=== PATIENT | male | born 1990 | race African-American/Black ===

== ENCOUNTER 2020-02-22 00:54 | Emergency (ER) | payer BC ==
[~2020-02-22] VITALS: Ht 180.3 cm; Wt 81.6 kg
--- NOTE | 2020-02-22 01:25 | NUR ---
ED Nurse Note: PT FROM HOME C/O NECK PAIN. PT STATES HAVING MASSAGE THERAPY ON TUESDAY AND MADE THE PAIN WORSE. PT STATES SEEING PMD TODAY WITH MED PRX BUT NO RELIEF. VSS, AMBULATORY, NAD.
[2020-02-22 01:36] VITALS: BP 134/73
[2020-02-22] MEDS ORDERED: METAXALONE400 MG PO (01:37)
[2020-02-22] MEDS ORDERED: Morphine Sulfate 4mg/ml Inj (IV USE ONLY) IVP ONE (01:45)
[2020-02-22] MEDS ORDERED: Ketorolac 30mg Inj IV ONE (01:45)
--- NOTE | 2020-02-22 01:47 | Emergency Room Report ---
History of Present Illness General Chief Complaint: Neck Pain Source: Patient Present Illness HPI Patient presents with complaints of lower occipital head pain and upper neck pain Patient reports initially symptoms started about 2 months ago that have slowly started to worsen Earlier this week patient had a massage by a therapist And feels that the area has now exacerbated more patient complains of pain at the base of the occipital region as well And bilateral temporal area with pounding sensation denies any visual changes denies any vomiting Patient also has discomfort to the right side of the throat area He has pain with swallowing pain in the right trapezius region Denies any chest pain denies any vomiting or diarrhea denies any recent travel denies any other trauma patient saw his primary physician today Has been taking Motrin and muscle relaxer with almost no improvement Allergies: Coded Allergies: CEPHALOSPORINS (Verified Allergy, Unknown, 02/22/20) ERYTHROMYCIN BASE (Verified Allergy, Unknown, 02/22/20) PENICILLIN G (Verified Allergy, Unknown, 02/22/20) COVID-19 Screening Contact w/high risk pt: No Recent Travel to affected area: No Experienced COVID-19 symptoms?: No Patient History Past Medical History: see triage record Reviewed Nursing Documentation: PMH: Agreed; PSxH: Agreed Review of Systems All Other Systems: negative except mentioned in HPI Physical Exam Vital Signs Date Time Temp Pulse Resp B/P (MAP) Pulse Ox O2 Delivery O2 Flow Rate FiO2 02/22/20 01:22 98.4 66 18 140/74 (96) 98 Room Air Sp02 EP Interpretation: reviewed, normal General Appearance: no apparent distress Head: normocephalic, atraumatic Eyes: bilateral eye PERRL, bilateral eye EOMI ENT: hearing grossly normal, EOM grossly intact, normal pharynx Neck: other - Patient is sitting straight has discomfort with trying to rotate the head from side to side has discomfort on palpation of the occipital region, no midline cervical spine step-offs, no obvious palpable supraclavicular masses Respiratory: lungs clear Cardiovascular #1: regular rate, rhythm Gastrointestinal: non tender, soft Musculoskeletal: normal inspection Neurologic: alert, oriented Skin: no rash Lymphatic: no adenopathy Medical Decision Making Diagnostic Impression: Primary Impression: Neck pain ER Course Multiple differentials including but not limited to meningitis, other infectious process musculoskeletal pathology,, neurological/neurosurgical differentials entertained I felt patient would benefit from baseline blood work for further evaluation of these differentials and imaging patient also ordered for IV medication Given the location of the discomfort and the duration, mediastinal mass and other emergent differentials also entertained At this time patient refuses any IV establishment Refuses any IV medication Patient however is agreeable to imaging this was performed patient was also given a soft collar C-spine For some symptomatic improvement After negative results I discussed further possible intervention and patient was agreeable to Medrol Dosepak patient understands that with refusing medical intervention and testing this can Interfere with missed diagnoses and other differentials Patient is afebrile At this time somewhat improved and reports that he has close outpatient follow- up CT/MRI/US Diagnostic Results CT/MRI/US Diagnostic Results : Impression CT head: No acute disease CT C-spine: No acute disease CT chest: No acute disease Last Vital Signs Date Time Temp Pulse Resp B/P (MAP) Pulse Ox O2 Delivery O2 Flow Rate FiO2 02/22/20 01:36 98.3 67 18 134/73 98 Room Air Status: improved Disposition: HOME, SELF-CARE Condition: Improved Scripts Methylprednisolone (Methylprednisolone*) 4MG Dspk 4 MG ORAL DIRECTED for 6 Days, #21 EA 0 Refills Day 1: Two tablets before breakfast, one after lunch, one after dinner, and two at bedtime. If started late in the day, take all six tablets at once or divide into two or three doses, unless otherwise directed by prescriber. Day 2: One tablet before breakfast, one after lunch, one after dinner, and two at bedtime Day 3: One tablet before breakfast, one after lunch, one after dinner, and one at bedtime Day 4: One tablet before breakfast, one after lunch, and one at bedtime Day 5: One tablet before breakfast and one at bedtime Day 6: One tablet before breakfast Prov: Ankita Rievra DO 02/22/20 Referrals: NON PHYSICIAN (PCP) Additional Instructions: Patient is provided with the discharge instructions notified to follow up with primary doctor in the next 2-3 days otherwise return to the er with any worsening symptoms. Please note that this report is being documented using Ch[employer] technology. This can lead to erroneous entry secondary to incorrect interpretation by the dictating instrument. Ankita Rivera DO Feb 22, 2020 01:47
--- NOTE | 2020-02-22 01:50 | NUR ---
ED Nurse Note: PT BLOOD DRAWN AND SENT TO LAB. PT IS REFUSING IV ACCESS. EXPLAINED TO THE PATIENT THAT THE IV ACCESS IS NEEDED FOR IV MEDICATION ADMINISTRATION. PT IS STILL REFUSING AND REQUESTED TO SPEAK TO THE ERMD. ERMD AT BEDSIDE
--- NOTE | 2020-02-22 02:15 | NUR ---
ED Nurse Note: PT WENT FOR CT
[2020-02-22 02:16] LABS: BASOPHILS % (AUTO) 0.5 % (0.0-2.0); EOSINOPHILS % (AUTO) 0.5 % (0.0-3.0); HEMATOCRIT 45.4 % (42.0-52.0); HEMOGLOBIN 16.2 G/DL (14.2-18.0); LYMPHOCYTES % (AUTO) 9.1 % (20.0-45.0); MEAN CORPUSCULAR VOLUME 89 FL (80-99); MONOCYTES % (AUTO) 8.4 % (1.0-10.0); NEUTROPHILS % (AUTO) 81.5 % (45.0-75.0); PLATELET COUNT 227 K/UL (150-450); RED BLOOD COUNT 5.11 M/UL (4.70-6.10); RED CELL DISTRIBUTION WIDTH 10.8 % (11.6-14.8); WHITE BLOOD COUNT 11.7 K/UL (4.8-10.8)
[2020-02-22 02:30] LABS: ANION GAP 7 mmol/L (5-15); BLOOD UREA NITROGEN 12 mg/dL (7-18); CALCIUM 8.9 MG/DL (8.5-10.1); CARBON DIOXIDE 31 MMOL/L (21-32); CHLORIDE 106 MMOL/L (98-107); CREATININE 1.4 MG/DL (0.55-1.30); POTASSIUM 4.3 MMOL/L (3.5-5.1); SODIUM 144 MMOL/L (136-145)
[2020-02-22 02:34] LABS: ALANINE AMINOTRANSFERASE 41 U/L (12-78); ALBUMIN 3.9 G/DL (3.4-5.0); ALBUMIN/GLOBULIN RATIO 1.1 (1.0-2.7); ALKALINE PHOSPHATASE 110 U/L (46-116); ASPARTATE AMINO TRANSFERASE 21 U/L (15-37); BILIRUBIN,TOTAL 0.5 MG/DL (0.2-1.0)
--- NOTE | 2020-02-22 02:35 | Diagnostic Imaging Report ---
EXAM: CT Head Without Intravenous Contrast CLINICAL HISTORY: PAIN TECHNIQUE: Axial computed tomography images of the head/brain without intravenous contrast. CTDI is 53.40 mGy and DLP is 1152.40 mGy-cm. One or more of the following dose reduction techniques were used: automated exposure control, adjustment of the mA and/or kV according to patient size, use of iterative reconstruction technique. COMPARISON: No relevant prior studies available. FINDINGS: Brain: No acute infarct, hemorrhage, mass or edema. Ventricles: Unremarkable. No ventriculomegaly. Bones/joints: Unremarkable. No acute calvarial fracture. Soft tissues: Unremarkable. Sinuses: Mild mucosal thickening in the paranasal sinuses. Mastoid air cells: Unremarkable as visualized. IMPRESSION: No acute findings in the head/brain.
--- NOTE | 2020-02-22 02:50 | NUR ---
ED Nurse Note: pt back from ct
--- NOTE | 2020-02-22 02:55 | NUR ---
ED Nurse Note: soft collar applied
--- NOTE | 2020-02-22 03:12 | Diagnostic Imaging Report ---
EXAM: CT Cervical Spine Without Intravenous Contrast CLINICAL HISTORY: PAIN TECHNIQUE: Axial computed tomography images of the cervical spine without intravenous contrast. CTDI is 9.0 mGy and DLP is 359.8 mGy-cm. One or more of the following dose reduction techniques were used: automated exposure control, adjustment of the mA and/or kV according to patient size, use of iterative reconstruction technique. COMPARISON: No relevant prior studies available. FINDINGS: Vertebrae: No acute fracture or traumatic malalignment. Discs/spinal canal/neural foramina: No acute findings. No significant spinal canal or neuroforaminal stenosis. Soft tissues: Unremarkable. IMPRESSION: No acute findings in the cervical spine.
--- NOTE | 2020-02-22 03:42 | Diagnostic Imaging Report ---
EXAM: CT Chest Without Intravenous Contrast CLINICAL HISTORY: PAIN TECHNIQUE: Axial computed tomography images of the chest without intravenous contrast. CTDI is 9 mGy and DLP is 359.8 mGy-cm. One or more of the following dose reduction techniques were used: automated exposure control, adjustment of the mA and/or kV according to patient size, use of iterative reconstruction technique. COMPARISON: No relevant prior studies available. FINDINGS: Lungs: Dependent atelectasis. Pleural space: Unremarkable. No pneumothorax. No significant effusion. Heart: Unremarkable. No cardiomegaly. No significant pericardial effusion. Bones/joints: Unremarkable. No acute fracture. No dislocation. Soft tissues: Unremarkable. Vasculature: Unremarkable. No thoracic aortic aneurysm. Lymph nodes: Unremarkable. IMPRESSION: No acute findings in the chest.
[2020-02-22 03:43] VITALS: BP 127/66
[2020-02-22] MEDS ORDERED: MEDROL DOSEPAK4 MG ORAL (03:47)
[2020-02-22 03:50] VITALS: BP 127/66
--- NOTE | 2020-02-22 03:50 | NUR ---
ER DISCHARGE NOTE: Patient is cleared to be discharged per ERMD, pt is aox4, on room air, with stable vital signs. pt was given dc and prescription instructions, pt was able to verbalize understanding, pt id band removed without complications. pt is able to ambulate with steady gait. pt took all belongings.
== END 2020-02-22 03:50 | disposition home or self-care (01) ==
LOC: EMR 01:26
DX: M54.2 Cervicalgia (principal); R51 Headache; Z88.0 Allergy status to penicillin; Z88.8 Allergy status to other drugs, medicaments and biological substances
CPT/HCPCS: 36415; 70450; 71250; 72125; 80053; 83690; 85025; 99284

== ENCOUNTER 2020-03-29 17:20 | Emergency (ER) | payer BC ==
[~2020-03-29] VITALS: Ht 180.3 cm; Wt 82.1 kg
[~2020-03-29 17:20] MED LIST: MEDROL DOSEPAK4 MG ORAL; METAXALONE400 MG PO
[2020-03-29 17:29] VITALS: BP 125/76
[2020-03-29 18:30] VITALS: BP 131/75
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
[2020-03-29] MEDS ORDERED: MUPIROCIN22 GM TOPIC (18:36)
[2020-03-29] MEDS ORDERED: IBUPROFEN600 M1 ORAL (18:36)
[2020-03-29] MEDS ORDERED: Bacitracin Oint UD TOPIC ONE ×2 (18:38→18:45)
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
== END 2020-03-29 18:30 | disposition home or self-care (01) ==
LOC: EMR 18:30
DX: S81.812A Laceration without foreign body, left lower leg, initial encounter (principal); S20.312A Abrasion of left front wall of thorax, initial encounter; S20.311A Abrasion of right front wall of thorax, initial encounter; Y35.043A Legal intervention involving injury by rubber bullet, suspect injured, initial encounter; Y92.9 Unspecified place or not applicable; Z88.0 Allergy status to penicillin; Z88.8 Allergy status to other drugs, medicaments and biological substances
CPT/HCPCS: 99284